=== PATIENT | female | born 1985 | race Caucasian/White ===

== ENCOUNTER 2018-10-01 13:26 | Outpatient (CLI) | payer OTHER | END 2018-10-01 13:27 | disposition home or self-care (01) | LOC: NAV LAB 13:26 | DX: Z51.81 Encounter for therapeutic drug level monitoring (principal); Z79.899 Other long term (current) drug therapy | CPT/HCPCS: 80305; G0477 ==

== ENCOUNTER 2018-10-09 15:06 | Outpatient (CLI) | payer OTHER | END 2018-10-09 15:07 | disposition home or self-care (01) | LOC: NAV LAB 15:06 | DX: Z51.81 Encounter for therapeutic drug level monitoring (principal); Z79.899 Other long term (current) drug therapy | CPT/HCPCS: 80305; G0477 ==

== ENCOUNTER 2018-10-21 16:01 | Outpatient (CLI) | payer OTHER | END 2018-10-21 16:02 | disposition home or self-care (01) | LOC: NAV OCC 16:01 | DX: Z00.00 Encounter for general adult medical examination without abnormal findings (principal) | CPT/HCPCS: 80305; G0477 ==

== ENCOUNTER 2018-12-09 17:12 | Outpatient (CLI) | payer SELFPAY | END 2018-12-09 17:13 | disposition home or self-care (01) | LOC: NAV LAB 17:12 | DX: Z00.00 Encounter for general adult medical examination without abnormal findings (principal) | CPT/HCPCS: 80305; G0477 ==

== ENCOUNTER 2018-12-23 12:03 | Outpatient (CLI) | payer SELFPAY | END 2018-12-23 12:04 | disposition home or self-care (01) | LOC: NAV LAB 12:03 | DX: Z00.00 Encounter for general adult medical examination without abnormal findings (principal) | CPT/HCPCS: 80305; G0477 ==

== ENCOUNTER 2024-02-06 16:28 | Emergency (ER) | payer SELFPAY ==
[2024-02-06] MEDS ORDERED: Sodium Chloride 0.9% 1,000 ML ONE (16:51)
[2024-02-06] MEDS ORDERED: diphenhydrAMINE 50 MG/ML VIAL ONE (16:51)
[2024-02-06] MEDS ORDERED: methylPREDNISolone Sod Succ/PF 125 MG/2 ML VIAL ONE (17:46)
== END 2024-02-06 18:25 | disposition home or self-care (01) ==
LOC: NAV ERS 16:28
DX: R21 Rash and other nonspecific skin eruption (principal); R73.03 Prediabetes; F17.210 Nicotine dependence, cigarettes, uncomplicated; F17.290 Nicotine dependence, other tobacco product, uncomplicated; Z55.6 Problems related to health literacy
CPT/HCPCS: 96361; 96374; 96375; J1200; J2930; J7050